=== PATIENT | female | born 1990 | race Caucasian/White ===

== ENCOUNTER 2019-05-26 09:38 | Emergency (ER) | payer OTHER ==
[~2019-05-26] VITALS: Ht 182.9 cm; Wt 145.1 kg
--- NOTE | 2019-05-26 09:38 | NUR ---
BIBRA 89 C/O NAUSEA, DIZZINESS AND WEAKNESS "AFTER BEING EXPOSED TO SMOKE IN THE OVEN AT WORK'. TO ER BED 10, HOOKED TO MONITOR, AWAITING MD WILKINS.
--- NOTE | 2019-05-26 11:20 | NUR ---
PA FOSTER AT BEDSIDE
[2019-05-26] MEDS ORDERED: KETOROLAC TROMETHAMINE INJ 30 MG/ML VIAL IV ONE (11:30)
[2019-05-26] MEDS ORDERED: IV NS 0.9% 1,000 ML BAG IV ONE (11:30)
[2019-05-26] MEDS ORDERED: METOCLOPRAMIDE HCL 10 MG/2 ML VIAL IV ONE (11:30)
[2019-05-26] MEDS ORDERED: diphenhydrAMINE HCL 50 MG/ML VIAL IV ONE (11:30)
[2019-05-26 11:38] LABS: BASOPHILS % (AUTO) 0.5 % (0.0-2.0); EOSINOPHILS % (AUTO) 1.2 % (0.0-6.0); HEMATOCRIT 43 % (33-45); HEMOGLOBIN 14.4 g/dL (11.5-14.8); LYMPHOCYTES # (AUTO) 2.2 /CMM (0.8-4.8); LYMPHOCYTES % (AUTO) 22.8 % (20.0-44.0); MEAN CORPUSCULAR HGB CONC 33 g/dl (31.0-36.0); MEAN CORPUSCULAR VOLUME 89 fL (82-100); MONOCYTES # (AUTO) 0.5 /CMM (0.1-1.30); MONOCYTES % (AUTO) 5.1 % (2.0-12.0); NEUTROPHILS # (AUTO) 6.8 /CMM (1.8-8.9); NEUTROPHILS % (AUTO) 70.4 % (43.0-81.0); PLATELET COUNT (AUTO) 266 /CMM (150-450); RED BLOOD CELL COUNT(AUTO) 4.82 MIL/uL (4.0-5.2); WHITE BLOOD COUNT (AUTO) 9.7 K/uL (4.3-11.0)
[2019-05-26] MEDS ORDERED: KETOROLAC TROMETHAMINE INJ 30 MG/ML VIAL ONE (11:40)
[2019-05-26] MEDS ORDERED: diphenhydrAMINE HCL 50 MG/ML VIAL ONE (11:40)
[2019-05-26] MEDS ORDERED: METOCLOPRAMIDE HCL 10 MG/2 ML VIAL ONE (11:40)
[2019-05-26 11:46] LABS: CALCIUM, SERUM 8.7 mg/dL (8.5-10.1); CREATININE 0.6 mg/dL (0.6-1.3); POTASSIUM 4.3 mmol/L (3.5-5.1)
[2019-05-26 12:01] LABS: ABG BASE EXCESS -1.9 mmol/L; ABG OXYGEN SATURATION 96.9 % (92.0-98.5); ABG PCO2 32.7 mmHg (35.0-45.0); ABG PH 7.434 (7.350-7.450); ABG PO2 94.9 mmHg (75.0-100.0); AaDO2 15.7 mmHg; COHb 0.4 % (0.5-1.5); MetHb 0.4 % (0.0-1.5); O2Hb 96.1 % (94.0-97.0); SITE, ABG Right Radial; VENT MODE, BG ROOM AIR
--- NOTE | 2019-05-26 12:41 | NUR ---
IV removed. Catheter intact and site benign. Pressure and 4x4 applied to site. No bleeding noted.Patient discharged to home in stable condition. Written and verbal after care instructions given. Patient verbalizes understanding of instruction.
[2019-05-26 12:43] VITALS: BP 126/62
== END 2019-05-26 12:45 | disposition home or self-care (01) ==
LOC: EDBD 09:44 → ER 09:44
DX: J68.9 Unspecified respiratory condition due to chemicals, gases, fumes and vapors (principal); J45.909 Unspecified asthma, uncomplicated; R42 Dizziness and giddiness
CPT/HCPCS: 36415; 36600 ×2; 71045; 80048; 82803; 84703; 85025; 96361; 96374; 96375; 99284; J1200; J1885; J2765; J7030